=== PATIENT | female | born 1945 | race Native Hawaiian/Other Pacific Islander ===

== ENCOUNTER 2018-09-21 13:52 | Emergency (ER) | payer MEDICARE, BC ==
[2018-09-21 13:53] VITALS: BMI 27.4
[2018-09-21 14:03] VITALS: RESP 20
[2018-09-21] MEDS ORDERED: Sodium Chloride 0.9% 1,000 ML IV ONE (14:41)
--- NOTE | 2018-09-21 14:41 | C.PDOC ---
History Of Present Illness 73 year old female presents to the ED for an evaluation of abdominal pain. She reports it is epigastric, local and intermittent. Otherwise, patient denies any associated symptoms of nausea, vomiting or diarrhea. Time Seen by Provider: 09/21/18 14:28 Chief Complaint (Nursing): Abdominal Pain History Per: Patient History/Exam Limitations: no limitations Onset/Duration Of Symptoms: Days, Intermittent Episodes Current Symptoms Are (Timing): Still Present Location Of Pain/Discomfort: Epigastric Quality Of Discomfort: "Pain" Past Medical History Reviewed: Historical Data, Nursing Documentation, Vital Signs Vital Signs: Last Vital Signs Temp 98.3 F 09/21/18 14:00 Pulse 111 H 09/21/18 14:00 Resp 20 09/21/18 14:00 BP 122/78 09/21/18 14:00 Pulse Ox 100 09/21/18 14:00 - Medical History PMH: Diabetes, HTN, Hypercholesterolemia Surgical History: Cholecystectomy, Other Surgeries: liposuction - [facility] Procedures NAIL REMOVAL (09/18/13) Family History: States: Unknown Family Hx - Social History Hx Alcohol Use: No Hx Substance Use: No - Immunization History Hx Tetanus Toxoid Vaccination: No Hx Influenza Vaccination: No Hx Pneumococcal Vaccination: No Review Of Systems Except As Marked, All Systems Reviewed And Found Negative. Constitutional: Negative for: Fever, Chills Respiratory: Negative for: Cough Gastrointestinal: Positive for: Abdominal Pain. Negative for: Nausea, Vomiting, Diarrhea Physical Exam - Physical Exam Appears: Non-toxic, No Acute Distress Skin: Normal Color, Warm, Dry Head: Atraumatic, Normacephalic Eye(s): bilateral: Normal Inspection, PERRL, EOMI Neck: Normal Chest: Symmetrical Cardiovascular: Rhythm Regular Respiratory: Normal Breath Sounds Gastrointestinal/Abdominal: Soft, Tenderness (mild epigastric) Back: Normal Inspection Extremity: Normal ROM, No Tenderness, No Pedal Edema, No Deformity Neurological/Psych: Oriented x3, Normal Speech Gait: Steady ED Course And Treatment - Laboratory Results Result Diagrams: 09/21/18 15:06 09/21/18 15:06 ECG: Interpreted By Me, Viewed By Me ECG Rhythm: Sinus Rhythm, 1st Degree HB Rate From EC O2 Sat by Pulse Oximetry: 100 (RA) Pulse Ox Interpretation: Normal Medical Decision Making Medical Decision Making: Time: 1441 Impression: epigastric pain Initial Plan: --ABD & Pelvis IV Contrast Only [CT] --EKG --Complete Metabolic Panel --Lipase --Troponin --CBC w/ Differential --Chest One View [RAD] --Morphine 2mg --Normal Saline 100 mls/hr --ED Obtain Labs STAT --Keep NPO except Meds (ED ONLY) --Saline Lock, 3ml NS Flush, PRN --Urinalysis Disposition Counseled Patient/Family Regarding: Studies Performed, Diagnosis, Need For Followup, Rx Given - Disposition Referrals: YOUR,PMD [Other] Disposition: HOME/ ROUTINE Disposition Time: 17:23 Condition: IMPROVED Prescriptions: Dicyclomine [Bentyl] 20 mg PO TID PRN #12 tab PRN Reason: Pain Instructions: Acute Abdomen (Belly Pain), Adult (DC) Forms: [employer] (Hungarian) - Clinical Impression Clinical Impression: Enteritis, Abdominal pain - Scribe Statement The provider has reviewed the documentation as recorded by the Scribe (Milton Mason) All medical record entries made by the Scribe were at my direction and personally dictated by me. I have reviewed the chart and agree that the record accurately reflects my personal performance of the history, physical exam, medical decision making, and the department course for this patient. I have also personally directed, reviewed, and agree with the discharge instructions and disposition.
[2018-09-21] MEDS ORDERED: Sodium Chloride 0.9% 1,000 ML ONE (14:50)
[2018-09-21 15:10] LABS: BASO % 0.3 % (0.0-2.0); EOS # 0.1 K/uL (0.0-0.7); EOS % 0.7 % (0.0-4.0); HEMOGLOBIN 14.7 g/dL (11.0-16.0); LYMPH # 0.3 K/uL (1.0-4.3); LYMPH % 4.2 % (20.0-40.0); MEAN CELL VOLUME 93.9 fL (81.0-99.0); MEAN CORPUSCULAR HEMOGLOBIN 31.6 pg (27.0-31.0); MEAN CORPUSCULAR HGB CONC 33.6 g/dL (33.0-37.0); MEAN PLATELET VOLUME 9.4 fL (7.2-11.7); MONO # 0.3 K/uL (0.0-0.8); MONO % 3.9 % (0.0-10.0); NEUT # 6.5 K/uL (1.8-7.0); NEUT % 90.9 % (50.0-75.0); PLATELET COUNT 161 K/uL (130-400); RBC 4.64 Mil/uL (3.80-5.20); RED CELL DISTRIBUTION WIDTH 12.7 % (11.5-14.5); WHITE BLOOD COUNT 7.2 K/uL (4.8-10.8)
[2018-09-21 15:13] LABS: SQUAMOUS EPITHIAL 1 /hpf (0-5); URINE BILIRUBIN NEGATIVE (NEGATIVE); URINE BLOOD NEGATIVE (NEGATIVE); URINE CLARITY Clear (Clear); URINE COLOR Amber (YELLOW); URINE GLUCOSE (UA) NORMAL (Normal); URINE LEUKOCYTE ESTERASE TRACE Leu/uL (Negative); URINE PROTEIN 1+ mg/dL (NEGATIVE); URINE UROBILINOGEN NORMAL mg/dL (0.2-1.0)
[2018-09-21 15:24] LABS: ALB/GLOB RATIO 1.3 (1.0-2.1); ALBUMIN 4.1 g/dL (3.5-5.0); ALT/SGPT 23 U/L (9-52); AST/SGOT 27 U/L (14-36); BLOOD UREA NITROGEN 19 mg/dL (7-17); GFR NON-AFRICAN AMERICAN 49; LIPASE 167 U/L (23-300)
[2018-09-21 15:47] LABS: BANDS 1 % (0-2); EOSINOPHIL 1 % (0-4); LYMPHOCYTE 4 % (20-40); MONOCYTE 4 % (0-10); NEUTROPHIL 90 % (50-75); PLATELET ESTIMATE NORMAL (NORMAL); TOTAL CELLS COUNTED 100
--- NOTE | 2018-09-21 15:53 | RAD ---
Date of service: 09/21/2018 PROCEDURE: CHEST RADIOGRAPH, 1 VIEW HISTORY: Abdominal COMPARISON: None available. FINDINGS: LUNGS: The lungs are well inflated and clear. PLEURA: No pneumothorax or pleural effusion. CARDIOVASCULAR: The heart is normal in size. No aortic atherosclerotic calcifications present. OSSEOUS STRUCTURES: Within normal limits for the patient's age. VISUALIZED UPPER ABDOMEN: Normal. OTHER FINDINGS: None. IMPRESSION: No active pulmonary disease.
[2018-09-21] MEDS ORDERED: Iodixanol 320 MG/ML 100 ML BOTTLE IV ONE (16:14)
[2018-09-21 16:56] VITALS: BP 126/71; PULSE 86; TEMP 97.8
--- NOTE | 2018-09-21 17:13 | CT ---
Date of service: 09/21/2018 PROCEDURE: CT Abdomen and Pelvis with contrast HISTORY: abd pain PERIUMB COMPARISON: Yesterday the the liver via but again the base the of the is there is after few original cm the the the acute occlusion with him than at this via particularly good time visit no she of of the 5th a the daughters tele body at this 0.8 view toe views of the dilated issue fall TECHNIQUE: Intravenous contrast dose: 100 cc Visipaque 320. Radiation dose: Total exam DLP = 539.67 mGy-cm. This CT exam was performed using one or more of the following dose reduction techniques: Automated exposure control, adjustment of the mA and/or kV according to patient size, and/or use of iterative reconstruction technique. FINDINGS: LOWER THORAX: Unremarkable. LIVER: Unremarkable. No gross lesion or ductal dilatation. GALLBLADDER AND BILE DUCTS: Status post cholecystectomy. No abnormality is seen in the gallbladder fossa. PANCREAS: Unremarkable. No gross lesion or ductal dilatation. SPLEEN: Unremarkable. ADRENALS: Unremarkable. No mass. KIDNEYS AND URETERS: Unremarkable. No hydronephrosis. No solid mass. VASCULATURE: Unremarkable. No aortic aneurysm. No atherosclerotic calcification or mural plaque present. BOWEL: Fluid-filled loops of small bowel the overall appearance suggests mild enteritis. No mechanical obstruction APPENDIX: The appendix is not visualized. PERITONEUM: Unremarkable. No free fluid. No free air. LYMPH NODES: Unremarkable. No enlarged lymph nodes. BLADDER: Unremarkable. REPRODUCTIVE: Unremarkable. BONES: No acute fracture. OTHER FINDINGS: None. IMPRESSION: Findings consistent with mild enteritis without mechanical obstruction other pathologic process.
[2018-09-21 17:25] VITALS: O2SAT 100
--- NOTE | 2018-09-22 17:32 | CARD ---
APPROVED REPORT Date of service: 09/21/2018 EKG Measurement Heart [id number] <Conclusion> Sinus rhythm with 1st degree AV block Inferior infarct, age undetermined Abnormal ECG
== END 2018-09-21 17:34 | disposition home or self-care (01) ==
LOC: C.ER 13:52
DX: K52.9 Noninfective gastroenteritis and colitis, unspecified (principal); R10.13 Epigastric pain
CPT/HCPCS: 71045; 74177; 80053; 81001; 83690; 84484; 85025; 93005; 96374; 99285; J2270; J7030; Q9967

== ENCOUNTER 2018-11-10 08:18 | Outpatient (CLI) | payer MEDICARE, BC | END 2018-11-10 08:19 | disposition home or self-care (01) | LOC: C.LAB 08:18 | DX: R41.3 Other amnesia (principal) ==

== ENCOUNTER 2018-11-13 13:12 | Outpatient (CLI) | payer MEDICARE, BC | END 2018-11-13 13:13 | disposition home or self-care (01) | LOC: C.MRIC 13:12 | DX: R41.3 Other amnesia (principal) ==